=== PATIENT | female | born 1965 | race Caucasian/White ===

== ENCOUNTER 2017-04-21 22:31 | Emergency (ER) | payer BC ==
[~2017-04-21] VITALS: Ht 177.8 cm; Wt 79.8 kg
[~2017-04-21 22:31] MED LIST: CELEXA40 MG PO; CLONAZEPAM0.5 MG PO; EFFEXOR XR75 MG PO; LIBRIUM25 MG PO; LOPRESSOR25 MG PO; TRAZODONE HCL50 MG PO; lisinopril
[2017-04-21 22:37] VITALS: BP 158/110
[2017-04-21 23:13] LABS: HEMATOCRIT 48.6 % (36.0-46.0); MCH 32.9 PG (29.0-34.0); MCHC 34.6 G/DL (30.0-36.0); MCV 95.1 FL (83-99); MEAN PLAT.VOLUME 9.8 uM^3 (9.5-12.4); PLATELET COUNT 153 K/uL (156-360); RBC DIS.WIDTH-CV 12.8 % (11.8-14.6); RBC DIS.WIDTH-SD 44.5 % (39-53); RED BLOOD COUNT 5.11 M/uL (3.80-5.20); WHITE BLOOD COUNT 7.4 K/uL (4.1-10.2)
[2017-04-21 23:22] LABS: CHLORIDE 106 mEq/L (99-109); POTASSIUM 3.8 mEq/L (3.7-5.4); SODIUM 143 mEq/L (136-147)
[2017-04-21 23:24] LABS: GLUCOSE 122 mg/dL (70-99)
[2017-04-21 23:25] LABS: ANION GAP 14 MEQ/L (2-14)
[2017-04-21 23:27] LABS: SERUM ETHYL ALCOHOL 214 mg/dL
[2017-04-21 23:28] LABS: GFR ESTIMATE (CALCULATED) > 59 mL/min/; UREA NITROGEN (BUN) 11 mg/dL (9-23)
== END 2017-04-22 02:00 | disposition left against medical advice (07) ==
LOC: EME 22:31
DX: M79.1 Myalgia (principal); Z53.21 Procedure and treatment not carried out due to patient leaving prior to being seen by health care provider
CPT/HCPCS: 80048; 85027; G0480

== ENCOUNTER 2017-05-16 18:05 | Inpatient (IN) | payer BC ==
[~2017-05-16] VITALS: Ht 175.3 cm; Wt 79.3 kg
[2017-05-16 18:51] LABS: EOSINOPHIL (%) 0.5 % (0-5); HEMATOCRIT 49.2 % (36.0-46.0); IMMATURE GRANULOCYTE (%) 0.2 % (0.0-0.7); INSTRUMENT ABS NEUTROPHIL CT 2.2 K/uL; MCH 33.3 PG (29.0-34.0); MCV 92.5 FL (83-99); MEAN PLAT.VOLUME 9.9 uM^3 (9.5-12.4); MONOCYTE (%) 7.5 % (3-12); MONOCYTE COUNT 0.4 K/uL (0-0.8); NEUTROPHIL (%) 38.2 % (45-76); NEUTROPHIL COUNT 2.2 K/uL (1.8-6.4); PLATELET COUNT 148 K/uL (156-360); RBC DIS.WIDTH-SD 41.1 % (39-53); RED BLOOD COUNT 5.32 M/uL (3.80-5.20); WHITE BLOOD COUNT 5.7 K/uL (4.1-10.2)
[2017-05-16 18:55] LABS: ADD MEDTOX COMMENT Y; AMPHETAMINE NEGATIVE (500 ng/mL); BARBITURATES NEGATIVE (200 ng/mL); BENZODIAZEPINES NEGATIVE (150 ng/mL); COCAINE PRESUMPTIVE POSITIVE (150 ng/mL); INTERNAL CONTROLS VALID? YES; METHADONE NEGATIVE (200 ng/mL); METHAMPHETAMINE NEGATIVE (500 ng/mL); OPIATES (MORPHINE) NEGATIVE (100 ng/mL); OXYCODONE NEGATIVE (100 ng/mL); PHENCYCLIDINE NEGATIVE (25 ng/mL); PROPOXYPHENE NEGATIVE (300 ng/mL); THC CANNABINOIDS NEGATIVE (50 ng/mL); TRICYCLIC ANTIDEPRESSANTS NEGATIVE (300 ng/mL)
[2017-05-16 18:59] LABS: CHLORIDE 109 mEq/L (99-109); SODIUM 145 mEq/L (136-147)
[2017-05-16 19:00] LABS: MAGNESIUM 2.3 mg/dL (1.3-2.7)
[2017-05-16 19:01] LABS: GLUCOSE 96 mg/dL (70-99)
[2017-05-16 19:03] LABS: ANION GAP 15 MEQ/L (2-14)
[2017-05-16 19:05] LABS: GFR ESTIMATE (CALCULATED) > 59 mL/min/; SERUM ETHYL ALCOHOL 231 mg/dL
[2017-05-16 19:07] LABS: UREA NITROGEN (BUN) 11 mg/dL (9-23)
[2017-05-16 19:08] LABS: SALICYLATE < 5.0 MG/DL (15-30)
[2017-05-16 19:09] LABS: LIPASE 77 U/L (1.0-51.0)
[2017-05-16 19:15] LABS: QUANTITATIVE HCG < 4.0 MIU/ML
[2017-05-17 07:20] LABS: ADD MIUA? YES; BILIRUBIN NEGATIVE; BLOOD NEGATIVE; COLOR YELLOW ((YELLOW)); GLUCOSE (STRIP) NEGATIVE; KETONES NEGATIVE; LEUKOCYTES NEGATIVE; NITRITE NEGATIVE; PROTEIN (STRIP) NEGATIVE; SPECIFIC GRAVITY 1.008 (1.000-1.030); UROBILINOGEN 0.2 MG/DL (0.2-1.0)
[2017-05-17 07:34] LABS: BACTERIA 1+ /HPF; BUDDING YEAST 2+; EPITHELIAL CELLS 3+ /HPF; MUCUS TRACE /LPF; RED BLOOD CELLS 0-5 /HPF (0-5); UCUL ADDED? NO; WHITE BLOOD CELLS 0-5 /HPF (0-5)
[2017-05-17 16:30] VITALS: BP 154/111
[2017-05-17] MEDS ORDERED: SUBOXONE 8 MG-1 EAC2 SL (17:05)
[2017-05-18 04:05] VITALS: BP 146/107
[2017-05-18 07:57] VITALS: BP 138/103
[2017-05-18 11:56] VITALS: BP 135/96
[2017-05-18 16:20] VITALS: BP 138/90
[2017-05-19 07:35] VITALS: BP 120/89
[2017-05-19 15:21] VITALS: BP 136/103
[2017-05-20 08:02] VITALS: BP 149/102
[2017-05-20 10:30] VITALS: BP 148/88
[2017-05-20] MEDS ORDERED: CITALOPRAM HBR20 MG PO (11:22)
[2017-05-20] MEDS ORDERED: BACTRIM,SEPT1 TABLET PO (11:22)
[2017-05-20] MEDS ORDERED: CAMPRAL333 MG PO (11:27)
== END 2017-05-20 12:37 | disposition home or self-care (01) | DRG 881 ==
LOC: EME 18:05 → 1WEST 05-17 15:51 → EDOF 05-17 15:51 → 1WEST 05-17 16:23
PROVIDERS: Emergency Medicine
DX: F32.9 Major depressive disorder, single episode, unspecified (principal); T39.1X2A Poisoning by 4-Aminophenol derivatives, intentional self-harm, initial encounter; F10.239 Alcohol dependence with withdrawal, unspecified; F17.200 Nicotine dependence, unspecified, uncomplicated; I10 Essential (primary) hypertension; F14.90 Cocaine use, unspecified, uncomplicated; F11.20 Opioid dependence, uncomplicated; F19.90 Other psychoactive substance use, unspecified, uncomplicated; G89.29 Other chronic pain; R10.30 Lower abdominal pain, unspecified; Z91.14 Patient's other noncompliance with medication regimen
CPT/HCPCS: 74177; 80048; 81003; 83690; 83735; 84702; 84999; 85025; 90837; 97150 GO; 97166 GO; 99281; 99285; G0480; J2270; J7030; Q0177

== ENCOUNTER 2017-06-07 17:44 | Inpatient (IN) | payer SELFPAY ==
[~2017-06-07] VITALS: Ht 175.3 cm; Wt 79.9 kg
[~2017-06-07 17:44] MED LIST changes: +BACTRIM,SEPT1 TABLET PO; +CAMPRAL333 MG PO; +CITALOPRAM HBR20 MG PO; +SUBOXONE 8 MG-1 EAC2 SL
[2017-06-07 19:31] LABS: HEMATOCRIT 42.8 % (36.0-46.0); MCH 33.3 PG (29.0-34.0); MCV 95.1 FL (83-99); MEAN PLAT.VOLUME 9.7 uM^3 (9.5-12.4); PLATELET COUNT 141 K/uL (156-360); RBC DIS.WIDTH-CV 12.1 % (11.8-14.6); RBC DIS.WIDTH-SD 42.3 % (39-53); WHITE BLOOD COUNT 5.3 K/uL (4.1-10.2)
[2017-06-07 19:45] LABS: CHLORIDE 109 mEq/L (99-109); POTASSIUM 4.5 mEq/L (3.7-5.4); SODIUM 147 mEq/L (136-147)
[2017-06-07 19:46] LABS: GLUCOSE 106 mg/dL (70-99)
[2017-06-07 19:48] LABS: ANION GAP 14 MEQ/L (2-14)
[2017-06-07 19:50] LABS: GFR ESTIMATE (CALCULATED) > 59 mL/min/; SERUM ETHYL ALCOHOL 255 mg/dL
[2017-06-07 19:51] LABS: UREA NITROGEN (BUN) 15 mg/dL (9-23)
[2017-06-07 20:49] LABS: INTERNAL CONTROL VALID? YES
[2017-06-07 21:16] LABS: AMPHETAMINE NEGATIVE (500 ng/mL); BENZODIAZEPINES PRESUMPTIVE POSITIVE (150 ng/mL); COCAINE PRESUMPTIVE POSITIVE (150 ng/mL); METHAMPHETAMINE NEGATIVE (500 ng/mL); OPIATES (MORPHINE) PRESUMPTIVE POSITIVE (100 ng/mL); PHENCYCLIDINE NEGATIVE (25 ng/mL); THC CANNABINOIDS NEGATIVE (50 ng/mL)
[2017-06-07 21:17] LABS: ADD MEDTOX COMMENT Y; BARBITURATES NEGATIVE (200 ng/mL); INTERNAL CONTROLS VALID? YES; METHADONE NEGATIVE (200 ng/mL); OXYCODONE NEGATIVE (100 ng/mL); PROPOXYPHENE NEGATIVE (300 ng/mL); TRICYCLIC ANTIDEPRESSANTS NEGATIVE (300 ng/mL)
[2017-06-07 21:55] LABS: BENZODIAZEPINES, URINE SCREEN POSITIVE (200 ng/mL)
[2017-06-07] MEDS ORDERED: CELEXA20 MG PO (22:34)
[2017-06-07] MEDS ORDERED: KLONOPIN0.5 M1 PO (22:35)
[2017-06-07] MEDS ORDERED: CATAPRES0.1 MG PO (22:35)
[2017-06-07] MEDS ORDERED: MOTRIN400 MG PO (22:37)
[2017-06-08 04:23] LABS: POINT-OF-CARE METER ID UU13113702
[2017-06-08 05:12] VITALS: BP 167/101
[2017-06-08 07:00] VITALS: BP 150/98
[2017-06-08 11:30] VITALS: BP 139/94
[2017-06-08 16:40] VITALS: BP 131/93
[2017-06-09 08:04] VITALS: BP 165/95
[2017-06-09 16:06] VITALS: BP 133/88
[2017-06-10 07:47] VITALS: BP 145/90
[2017-06-10] MEDS ORDERED: CELEXA20 MG PO (11:09)
[2017-06-10] MEDS ORDERED: CATAPRES0.1 MG PO (11:09)
[2017-06-10] MEDS ORDERED: CLONIDINE HCL0.1 MG PO (11:53)
[2017-06-10] MEDS ORDERED: NALTREXONE HCL50 MG PO (11:55)
== END 2017-06-10 12:08 | disposition home or self-care (01) | DRG 885 ==
LOC: EME → EDBD 17:44 → EDOF 06-08 01:50 → 1WEST 06-08 01:50
PROVIDERS: Emergency Medicine; Psychiatry & Neurology Psychiatry
DX: F33.0 Major depressive disorder, recurrent, mild (principal); F11.90 Opioid use, unspecified, uncomplicated; F17.200 Nicotine dependence, unspecified, uncomplicated; F10.229 Alcohol dependence with intoxication, unspecified; I10 Essential (primary) hypertension; Z91.14 Patient's other noncompliance with medication regimen; S50.811A Abrasion of right forearm, initial encounter; S10.91XA Abrasion of unspecified part of neck, initial encounter; X99.1XXA Assault by knife, initial encounter; Y92.009 Unspecified place in unspecified non-institutional (private) residence as the place of occurrence of the external cause; Y90.8 Blood alcohol level of 240 mg/100 ml or more
CPT/HCPCS: 80048; 82948; 84703; 84999; 85027; 90837; 99281; 99285; G0480; Q0177

== ENCOUNTER 2017-08-30 19:48 | Emergency (ER) | payer OTHER ==
[~2017-08-30] VITALS: Ht 177.8 cm; Wt 80.3 kg
[~2017-08-30 19:48] MED LIST changes: +CATAPRES0.1 MG PO; +CELEXA20 MG PO; +CLONIDINE HCL0.1 MG PO; +KLONOPIN0.5 M1 PO; +MOTRIN400 MG PO; +NALTREXONE HCL50 MG PO
[2017-08-30 21:20] LABS: EOSINOPHIL (%) 0.6 % (0-5); EOSINOPHIL COUNT 0.1 K/uL (0-0.3); HEMATOCRIT 41.2 % (36.0-46.0); IMMATURE GRANULOCYTE (%) 0.2 % (0.0-0.7); INSTRUMENT ABS NEUTROPHIL CT 3.4 K/uL; MCH 32.2 PG (29.0-34.0); MCHC 34.7 G/DL (30.0-36.0); MCV 92.8 FL (83-99); MEAN PLAT.VOLUME 9.5 uM^3 (9.5-12.4); MONOCYTE (%) 6.6 % (3-12); MONOCYTE COUNT 0.5 K/uL (0-0.8); NEUTROPHIL (%) 41.8 % (45-76); NEUTROPHIL COUNT 3.4 K/uL (1.8-6.4); PLATELET COUNT 135 K/uL (156-360); RBC DIS.WIDTH-CV 11.7 % (11.8-14.6); RED BLOOD COUNT 4.44 M/uL (3.80-5.20)
[2017-08-30 21:28] LABS: CHLORIDE 108 mEq/L (99-109); POTASSIUM 3.4 mEq/L (3.7-5.4); SODIUM 142 mEq/L (136-147)
[2017-08-30 21:31] LABS: GLUCOSE 120 mg/dL (70-99)
[2017-08-30 21:32] LABS: ANION GAP 12 MEQ/L (2-14)
[2017-08-30 21:33] LABS: TOTAL BILIRUBIN 0.2 mg/dL (0.0-1.0)
[2017-08-30 21:34] LABS: ALKALINE PHOSPHATASE 53 IU/L (3-129); GFR ESTIMATE (CALCULATED) > 59 mL/min/; SERUM ETHYL ALCOHOL 224 mg/dL
[2017-08-30 21:36] LABS: UREA NITROGEN (BUN) 16 mg/dL (9-23)
[2017-08-30 21:43] LABS: QUANTITATIVE HCG < 4.0 MIU/ML
[2017-08-31 00:48] LABS: ADD MIUA? YES; BILIRUBIN NEGATIVE; BLOOD NEGATIVE; COLOR YELLOW ((YELLOW)); GLUCOSE (STRIP) NEGATIVE; KETONES NEGATIVE; LEUKOCYTES NEGATIVE; NITRITE NEGATIVE; PROTEIN (STRIP) NEGATIVE; SPECIFIC GRAVITY 1.027 (1.000-1.030); UROBILINOGEN 0.2 MG/DL (0.2-1.0)
[2017-08-31 00:56] LABS: BACTERIA NONE SEEN /HPF; EPITHELIAL CELLS 1+ /HPF; MUCUS TRACE /LPF; RED BLOOD CELLS 0-5 /HPF (0-5); UCUL ADDED? NO; WHITE BLOOD CELLS 0-5 /HPF (0-5)
[2017-08-31 01:02] LABS: AMPHETAMINE NEGATIVE (500 ng/mL); BARBITURATES NEGATIVE (200 ng/mL); BENZODIAZEPINES PRESUMPTIVE POSITIVE (150 ng/mL); COCAINE NEGATIVE (150 ng/mL); INTERNAL CONTROLS VALID? YES; METHADONE NEGATIVE (200 ng/mL); METHAMPHETAMINE NEGATIVE (500 ng/mL); OPIATES (MORPHINE) NEGATIVE (100 ng/mL); OXYCODONE PRESUMPTIVE POSITIVE (100 ng/mL); PHENCYCLIDINE NEGATIVE (25 ng/mL); PROPOXYPHENE NEGATIVE (300 ng/mL); THC CANNABINOIDS NEGATIVE (50 ng/mL); TRICYCLIC ANTIDEPRESSANTS NEGATIVE (300 ng/mL)
[2017-08-31 01:03] LABS: ADD MEDTOX COMMENT Y
[2017-08-31 02:01] LABS: BENZODIAZEPINES QUANT VALUE 0 NG/ML; BENZODIAZEPINES, URINE SCREEN Negative (200 ng/mL)
[2017-08-31] MEDS ORDERED: CLONIDINE HCL0.1 MG PO (03:07)
[2017-08-31] MEDS ORDERED: ATARAX,VISTARIL25 MG PO (03:07)
[2017-08-31] MEDS ORDERED: ZOFRAN ODT4 MG PO (03:07)
[2017-08-31 03:21] VITALS: BP 141/89
== END 2017-08-31 03:26 | disposition home or self-care (01) ==
LOC: EME → EDBD 19:48 → EME 19:48
PROVIDERS: Emergency Medicine
DX: F11.23 Opioid dependence with withdrawal (principal); F33.1 Major depressive disorder, recurrent, moderate; I10 Essential (primary) hypertension; F41.9 Anxiety disorder, unspecified; Z88.0 Allergy status to penicillin; F17.200 Nicotine dependence, unspecified, uncomplicated
CPT/HCPCS: 80053; 81003; 84702; 84999; 85025; 90839; 99281; 99285; G0480; Q0177